=== PATIENT | male | born 1990 | race Caucasian/White ===

== ENCOUNTER 2020-07-12 10:18 | Emergency (ER) | payer OTHER ==
--- NOTE | 2020-07-12 11:01 | ER Document Report ---
ED Medical Screen (RME) - General Chief Complaint: Sore Throat Stated Complaint: SORE THROAT Time Seen by Provider: 07/12/20 11:00 Notes: HPI: 30-year-old male presenting with sore throat for 2 days. Patient believes he had strep throat. Went to [facility] yesterday states they did a Covid and flu swab which are both pending but did not do a strep test. No fever. PHYSICAL EXAMINATION: Bilateral tonsillar enlargement is noted with pharyngeal erythema without exudate. Phonation is normal, positive anterior cervical lymphadenopathy bilaterally I have greeted and performed a rapid initial assessment of this patient. A comprehensive ED assessment and evaluation of the patient, analysis of test results and completion of medical decision making process will be conducted by an additional ED providers. - Related Data Allergies/Adverse Reactions: No Known Allergies Allergy (Unverified 07/12/20 10:57) Home Medications: ibuprofen Past Medical History - Social History Chew tobacco use (# tins/day): No Frequency of alcohol use: None Drug Abuse: None Physical Exam - Vital signs Vitals: Temp Pulse Resp BP Pulse Ox 98.4 F 100 16 142/84 H 96 07/12/20 10:37 07/12/20 10:37 07/12/20 10:37 07/12/20 10:37 07/12/20 10:37 Course - Vital Signs Vital signs: Temp Pulse Resp BP Pulse Ox 98.4 F 100 16 142/84 H 96 07/12/20 10:37 07/12/20 10:37 07/12/20 10:37 07/12/20 10:37 07/12/20 10:37
--- NOTE | 2020-07-12 11:41 | ER Document Report ---
ED ENT - General Chief Complaint: Sore Throat Stated Complaint: SORE THROAT Time Seen by Provider: 07/12/20 11:00 Notes: HPI: 30-year-old male with sore throat for 2 days. Some body aches. No headache or neck stiffness. No vomiting or diarrhea. No chest pain or cough. No abdominal pain or rash. ROS: See HPI All other review of systems reviewed and otherwise negative Reviewed vital signs and nursing note as charted by RN. PHYSICAL EXAM: CONSTITUTIONAL: Alert and oriented and responds appropriately to questions. Well-appearing; well-nourished HEAD: Normocephalic; atraumatic EYES: PERRL; Conjunctivae clear, sclerae non-icteric ENT: No lip, tongue, posterior pharyngeal swelling. Some posterior erythema with exudate present with a nonswollen midline uvula with no obvious unilateral peritonsillar swelling NECK: Supple without meningismus; non-tender; no cervical lymphadenopathy, no masses CARD: Regular rate and rhythm; no murmurs; symmetric distal pulses RESP: Normal chest excursion without splinting or tachypnea; breath sounds clear and equal bilaterally; no wheezes, no rhonchi, no rales ABD/GI: Normal bowel sounds; non-distended; soft, non-tender; no palpable organomegaly or masses BACK: The back appears normal and is non-tender to palpation EXT: Normal ROM in all joints; non-tender to palpation; no edema SKIN: No acute lesions noted NEURO: CN 2-12 intact PSYCH: The patient's mood and manner are appropriate. Grooming and personal hygiene are appropriate. - Related Data Allergies/Adverse Reactions: No Known Allergies Allergy (Unverified 07/12/20 10:57) Home Medications: ibuprofen Past Medical History - Social History Smoking Status: Never Smoker Chew tobacco use (# tins/day): No Frequency of alcohol use: None Drug Abuse: None Family History: Reviewed & Not Pertinent Physical Exam - Vital signs Vitals: Temp Pulse Resp BP Pulse Ox 98.4 F 100 16 142/84 H 96 07/12/20 10:37 07/12/20 10:37 07/12/20 10:37 07/12/20 10:37 07/12/20 10:37 Course - Re-evaluation Re-evalutation: 07/12/20 11:40 Given the above history and physical examination, we will order rapid strep. Patient supposedly went to [facility] yesterday and has a coronavirus pending. Patient is not hypoxic or tachycardic. No signs or symptoms of meningitis at this time. No cough or abdominal tenderness. 07/12/20 12:07 Vital signs as recorded. No change in exam. I will provide Decadron for symptomatic relief of the sore throat as well as for possible assistance with a possible Covid positive patient. Patient understands restrictions as well as return precautions. - Vital Signs Vital signs: Temp Pulse Resp BP Pulse Ox 98.4 F 100 16 142/84 H 96 07/12/20 10:37 07/12/20 10:37 07/12/20 10:37 07/12/20 10:37 07/12/20 10:37 Discharge - Discharge Clinical Impression: Sore throat (viral), Generalized body aches Condition: Good Disposition: HOME, SELF-CARE Additional Instructions: Come back immediately for any worsening sore throat, difficulty breathing or swallowing, cough or shortness of breath, or any other acute problems. Please follow-up with the coronavirus test and make sure that you stay quarantined until results have returned.
[2020-07-12] MEDS ORDERED: DEXAMETHASONE 4 MG TABLET PO ONE (12:08)
[2020-07-12 12:29] VITALS: BP 140/87
== END 2020-07-12 12:28 | disposition home or self-care (01) ==
LOC: ER 10:18
DX: J02.8 Acute pharyngitis due to other specified organisms (principal); B97.89 Other viral agents as the cause of diseases classified elsewhere; Z79.1 Long term (current) use of non-steroidal anti-inflammatories (NSAID)
CPT/HCPCS: 99283; 87070; 87880; J8540